=== PATIENT | female | born 1985 | race Caucasian/White ===

== ENCOUNTER 2018-09-10 23:48 | Emergency (ER) | payer OTHER ==
[~2018-09-10] VITALS: Ht 154.9 cm; Wt 99.8 kg
[~2018-09-10 23:48] MED LIST: CELEXA 20 MG TA20 M1 PO
[2018-09-10 23:59] VITALS: BP 150/106
== END 2018-09-11 00:48 | disposition home or self-care (01) ==
LOC: ER 23:48
DX: R20.2 Paresthesia of skin (principal); R20.0 Anesthesia of skin; J45.909 Unspecified asthma, uncomplicated